=== PATIENT | male | born 1965 | race Caucasian/White ===

== ENCOUNTER 2022-03-22 06:23 | Day surgery (SDC) | payer OTHER ==
[~2022-03-22] VITALS: Ht 177.8 cm; Wt 104.5 kg
[~2022-03-22 06:23] MED LIST: HYDHCL25 PO
[2022-03-22] MEDS ORDERED: Amitriptyline H25 MG PO (07:00)
[2022-03-22] MEDS ORDERED: FAMO40 PO (07:00)
[2022-03-22] MEDS ORDERED: DULO60 PO (07:01)
== END 2022-03-22 07:54 | disposition home or self-care (01) ==
LOC: ORSCSDS 06:23
PROVIDERS: Anesthesiology
PROC: 3E0R3BZ Introduction of Anesthetic Agent into Spinal Canal, Percutaneous Approach (ICD-10-PCS; principal; 2022-03-22 07:30)
DX: M54.16 Radiculopathy, lumbar region (principal); F32.A Depression, unspecified; K21.9 Gastro-esophageal reflux disease without esophagitis; F41.9 Anxiety disorder, unspecified; Z79.899 Other long term (current) drug therapy
CPT/HCPCS: J1040

== ENCOUNTER 2022-05-04 08:53 | Day surgery (SDC) | payer OTHER ==
[~2022-05-04 08:53] MED LIST changes: +Amitriptyline H25 MG PO; +DULO60 PO; +FAMO40 PO
[2022-05-04] MEDS ORDERED: NORT10 (09:17)
[2022-05-04] MEDS ORDERED: HYDCHL25 (09:17)
[2022-05-04] MEDS ORDERED: PERCOCET 10-321 EA12 (09:18)
== END 2022-05-04 10:50 | disposition home or self-care (01) ==
LOC: ORSCSDS 08:53
PROVIDERS: Anesthesiology
PROC: 3E0R33Z Introduction of Anti-inflammatory into Spinal Canal, Percutaneous Approach (ICD-10-PCS; principal; 2022-05-04 10:15)
DX: F41.8 Other specified anxiety disorders (principal); M51.16 Intervertebral disc disorders with radiculopathy, lumbar region; M96.1 Postlaminectomy syndrome, not elsewhere classified; M51.36 Other intervertebral disc degeneration, lumbar region; M48.061 Spinal stenosis, lumbar region without neurogenic claudication; Z79.899 Other long term (current) drug therapy
CPT/HCPCS: J1040; J2001

== ENCOUNTER 2022-11-15 05:31 | Observation (INO) | payer OTHER ==
[2022-11-15] VITALS (20 sets, daily range): BP systolic 100–131; BP diastolic 62–99
[~2022-11-15] VITALS: Ht 177.8 cm; Wt 114.0 kg
[~2022-11-15 05:31] MED LIST changes: +Cymbalta20 MG PO; +HYDCHL25; +NORT10 PO; +OMEP20ER PO; +PERCOCET 10-321 EA12; +Percocet 5-3251 EACH PO; +VITAMIN D325 MC3 PO
--- NOTE | 2022-11-15 07:10 | NUR ---
WHEELCHAIR inTO Day Surgery. PT IS UNABLE TO STAND DUE TO "NERVE AND BONE DETERIORATION". History, Chart, Medications and Allergies reviewed before start of procedure.Patient confirms NPO status and agrees with scheduled surgery. Pre-Op teaching done. Pt verbalizes understanding.
[2022-11-15] MEDS ORDERED: PROP10 PO (07:21)
--- NOTE | 2022-11-15 16:57 | NUR ---
POST OP: REPORT RECIEVED FROM [employer] SUPERVISORYIFAN KIRKLAND. PT TO UNIT AT ABOUT 1130, VSS, A/O, SURGICAL SITES WNL. PT EDUCATED FOAM CASTER LIGHT USE AND FIRE SAFETY/IGNITION RISK AND ORIENTED TO ROOM. PT RATES PAIN 5/10, MEDICATED PER EMAR. PT TO STAY NPO AT THIS TIME PER ORDER.
--- NOTE | 2022-11-15 17:00 | NUR ---
SUMMARY: NO ACUTE CHANGE SINCE POST OP. PT NOW ABLE TO DRINK CLEAR LIQUIDS AND TOLERATING WELL, NO N/V. PT HAS TRANSFERED TO WHEELCHAIR WITH 1 ASSIST AND VOIDED IN BATHROOM. PAIN APPEARS TO BE WELL MANAGED WITH 1 OXY. REPORT PASSED TO YIFAN COLLIER.
--- NOTE | 2022-11-15 18:48 | NUR ---
SHIFT SUMMARY PT A&OX4, VSS/RA, AMBER PO CLD, VOIDING, WC BASELINE/TRANSFERS SELF, PAIN MANAGED, 4 LAP SITES CDI. WILL REPORT TO ONCOMING NOC RN.
[2022-11-16 03:30] VITALS: BP 136/94
[2022-11-16 04:29] LABS: Hemoglobin 15.3 g/dL (13.5-17.5); Mean Corpuscular HGB 30.1 pg (26.0-34.0); Mean Corpuscular Volume 89 fL (80-100); Mean Platelet Volume 10.7 fL (9.1-12.4); Platelet Count 262 K/mm3 (150-400); RDW Coefficient Variation 11.9 % (11.7-14.2); RDW Standard Deviation 38.5 fL (35.1-46.3); Red Blood Cell Count 5.08 M/mm3 (4.30-5.90); White Blood Cell Count 16.67 K/mm3 (4.00-11.30)
[2022-11-16 05:02] LABS: Bun/Creatinine Ratio 18.6 (12.0-20.0); Calcium, Blood 8.6 mg/dL (8.5-10.1); Creatinine, Blood 1.02 mg/dL (0.60-1.20); Magnesium, Blood 1.8 mg/dL (1.6-2.4); Potassium, Blood 4.4 mmol/L (3.5-5.5)
[2022-11-16 07:20] VITALS: BP 120/76
--- NOTE | 2022-11-16 08:39 | NUR ---
SUMMARY TOLERATING CLR LIQ PO.PASSING FLATUS.VOIDING. PAIN WELL CONTROLLED.HOPING FOR D/C TODAY.
--- NOTE | 2022-11-16 10:00 | NUR ---
FIRE PREVENTION EDU PROVIDED, NO IGNITION DEVICES ID'D.
--- NOTE | 2022-11-16 16:44 | NUR ---
DISCHARGE SUMMARY PT A&OX4, VSS/RA, AMBER PO FLD, VOIDING, PASSING FLATUS, SELF TRANSFER TO WC, PAIN MANAGED, IV DC'D, 4 LAP SITES CDI. DC INS PROVIDED. PT REP UNDERSTANDING THOSE INSTRUCTIONS. LEFT FLOOR WITH PARENTS IN HIS OWN WC WITH ALL PERSONAL POSSESSIONS INCLUDING DC PACKET.
== END 2022-11-16 14:30 | disposition home or self-care (01) ==
LOC: PRE IP 05:31 → SURS 05:31 → PRE IP 07:30 → SURS 10:20
PROVIDERS: ADMIT Surgery
DX: K21.9 Gastro-esophageal reflux disease without esophagitis (principal); K22.2 Esophageal obstruction; Z79.899 Other long term (current) drug therapy
CPT/HCPCS: 36415; 80048; 83735; 85027; A9270; J0690; J1100; J1170; J1650; J1885; J2405; J2704; J2765; J3010; J7120